=== PATIENT | female | born 1960 | race Caucasian/White ===

== ENCOUNTER 2018-10-28 19:55 | Emergency (ER) | payer BC ==
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
[2018-10-28 20:30] VITALS: BP 114/65
== END 2018-10-28 21:57 | disposition home or self-care (01) ==
LOC: UCEAST 19:55
DX: S16.1XXA Strain of muscle, fascia and tendon at neck level, initial encounter (principal); V43.92XA Unspecified car occupant injured in collision with other type car in traffic accident, initial encounter; Y92.410 Unspecified street and highway as the place of occurrence of the external cause; E03.9 Hypothyroidism, unspecified
CPT/HCPCS: 72125; 99211; G0463